=== PATIENT | male | born 1980 | race Two or more races ===

== ENCOUNTER 2023-05-01 16:17 | Emergency (ER) | payer MEDICAID ==
[~2023-05-01] VITALS: Ht 167.6 cm; Wt 63.6 kg
[2023-05-01 16:34] VITALS: TEMP 98
[2023-05-01] MEDS ORDERED: IBUPROFEN 400 MG TABLET PO ONE (17:15)
[2023-05-01] MEDS ORDERED: HYDROCODONE/ACETAMINOPHEN 5-325 MG TABLET PO ONE (18:15)
[2023-05-01] MEDS ORDERED: IBUP-1492 PO (20:11)
[2023-05-01 20:25] VITALS: BP 134/79; PULSE 72; RESP 16
== END 2023-05-01 20:27 | disposition home or self-care (01) ==
LOC: EMS 16:18
DX: S63.254A Unspecified dislocation of right ring finger, initial encounter (principal); W01.0XXA Fall on same level from slipping, tripping and stumbling without subsequent striking against object, initial encounter; Y93.89 Activity, other specified; Y92.89 Other specified places as the place of occurrence of the external cause; Y99.8 Other external cause status
CPT/HCPCS: 26770; 99284; 73140-TC; Z7502; Z7610